=== PATIENT | male | born 1945 | race Caucasian/White ===

== ENCOUNTER 2016-12-30 09:52 | Outpatient (RCR) | payer MEDICARE, OTHER ==
--- OUTSIDE RECORDS SUMMARY | 2016-12-28 12:54 | XMS REPORT | Continuity of Care Document ---
Author Author [facility] Organization [facility] Address Unknown Phone Unavailable Care Team Providers Care Knot Tier Name Role Phone PCP Unavailable Source Comments Some departments are not documenting in the electronic medical record. If you do not see the information that you expected, contact Release of Information in the Health Information Management department at [phone] for further assistance in locating additional records.[facility] Active Allergies and Adverse Reactions Allergen Noted Date Severity Reactions Comments Niacin 12/17/2012 FLUSHING (SKIN) Percodan 10/31/2012 UNKNOWN Hit self and took skin off knees and elbows. Current Medications Prescription Sig. Disp. Refills Start End Date Status Date FENOFIBRATE PO Take 134 mg by mouth Active daily. ERGOCALCIFEROL (VITAMIN Take 50,000 Units by Active D2) (VITAMIN D PO) mouth four times weekly. allopurinol (ZYLOPRIM) Take 300 mg by mouth Active 300 mg tablet daily. carvedilol (COREG) 25 mg Take 25 mg by mouth twice Active tablet daily with meals. clopiDOGrel (PLAVIX) 75 Take 75 mg by mouth Active mg tablet daily. furosemide (LASIX) 40 mg Take 40 mg by mouth Active tablet daily. 3x a week glimepiride (AMARYL) 4 mg Take 4 mg by mouth daily Active tablet with breakfast. magnesium oxide (MAG-OX) Take 400 mg by mouth Active 400 mg tablet daily. metFORMIN (GLUCOPHAGE) Take 500 mg by mouth Active 500 mg tablet daily. 3x a week DOCOSAHEXANOIC ACID/EPA Take 1,800 mg by mouth Active (FISH OIL PO) twice daily. Total daily EPA/EZK=[id number] potassium chloride SR Take 10 mEq by mouth Active (K-DUR) 10 mEq tablet daily. testosterone cypionate(+) Inject 100 mg to area(s) Active (DEPO-TESTOSTERONE) 100 as directed every 14 mg/mL injection days. linagliptin (TRADJENTA) 5 Take 5 mg by mouth daily. Active mg Tab aspirin EC 81 mg tablet Take 81 mg by mouth Active daily. Bee Pollen 500 mg Tab Take 550 mg by mouth Active daily. cyanocobalamin(+) Take 1,000 mcg by mouth Active (VITAMIN B-12) 500 mcg daily. tablet [place] Extr Use 250 mg as directed Active daily. Cinnamon Bark (CINNAMON) Take 500 mg by mouth Active 500 mg cap daily. ASCORBATE CALCIUM Take 500 mg by mouth Active (VITAMIN C PO) daily. rosuvastatin (CRESTOR) 20 Take 1 Tab by mouth three 90 Tab 3 12/17/19 Active mg tablet times weekly. 13 lisinopril (PRINIVIL; Take 10 mg by mouth twice Active ZESTRIL) 10 mg tablet daily. Active Problems Problem Noted Date Mixed dyslipidemia 06/17/2013 Diabetes mellitus (HCC) 06/17/2013 Dyslipidemia 12/17/2012 Social History Tobacco Use Types Packs/Day Years Used Date Never Smoker Smokeless Tobacco: Never Used Tobacco Cessation: Counseling Given: No Comments: Alcohol Use Drinks/Week oz/Week Comments No Last Filed Vital Signs Vital Sign Reading Time Taken Blood Pressure 162/72 06/17/2013 8:35 AM CDT Pulse 73 06/17/2013 8:35 AM CDT Temperature - - Respiratory Rate - - Height 1.854 m (6' 1") 06/17/2013 8:35 AM CDT Weight 127.279 kg (280 lb 9.6 06/17/2013 8:35 AM CDT oz) Body Mass Index 37.03 06/17/2013 8:35 AM CDT Oxygen Saturation - - Plan of Care Health Maintenance Due Date Last Done Comments Physical (Comprehensive) 1952 Exam Pertussis Vaccine 1957 Tetanus Vaccine 1963 Colorectal Cancer 1996 Screening Shingles Vaccine 2006 Prevnar/Pneumovax (#1) 2011 Influenza Vaccine 06/23/2016 Results from Last 3 Months Not on file
--- OUTSIDE RECORDS SUMMARY | 2016-12-28 13:28 | XMS REPORT | Continuity of Care Document ---
Author Author [facility] Organization [facility] Address Unknown Phone Unavailable Care Team Providers Care Arboriculture Teacher Name Role Phone PCP Unavailable Source Comments Some departments are not documenting in the electronic medical record. If you do not see the information that you expected, contact Release of Information in the Health Information Management department at [phone] for further assistance in locating additional records.[facility] Active Allergies and Adverse Reactions Allergen Noted [...] (FISH OIL PO) twice daily. Total daily EPA/VNI=[id number] potassium chloride SR Take 10 mEq by [...]
--- NOTE | 2016-12-28 14:01 | Diagnostic Imaging Report ---
CLINICAL INDICATION: Patient with chronic kidney disease stage 3. EXAM: Ultrasound of both kidneys. COMPARISON: Ultrasound of both kidneys dated 11/05/2012. FINDINGS: Both kidneys are normal in size, shape, echogenicity and cortical thickness without hydronephrosis, stones, or focal lesions with the right and left kidneys measuring 14.2 cm and 12.2 cm in their craniocaudal dimensions, respectively. The bladder is incompletely distended and not well visualized for evaluation on this exam. IMPRESSION: Unremarkable bilateral renal ultrasound. Dictated by: Dictated on workstation # [id number]
[~2016-12-30 09:52] MED LIST: ALBU8.5H2 IH; ALLO100T PO; ALLO300T2 PO; AMLO5TAB2 PO; ASCO-262 PO; ASPI-875 PO; BEE550CA PO; BENZ100C18 PO; CARV25TA PO; CHERRY EXTRACT PO; CHOL5000 PO; CINN500C7 PO; CLOP75TA PO; CYAN10007 PO; ELDERBERRY PO; FENO134C PO; FURO40TA4 PO; GLIM4TAB PO; LEVO500T69 PO; LINA5TAB PO; LISI20TA PO; MAGN400T6 PO; MTF500T PO; MV,C1TAB21 PO; POTA10TA36 PO; ROSU20TA14 PO
== END 2017-03-28 | disposition home or self-care (01) ==
LOC: RAD 09:52
PROVIDERS: ATTEND Internal Medicine
DX: N18.3 Chronic kidney disease, stage 3 (moderate) (principal)
CPT/HCPCS: 76770; 82570; 84156

== ENCOUNTER → 2017-03-28 | Outpatient (CLI) | payer MEDICARE, OTHER | LOC: RAD 14:23 | PROVIDERS: ATTEND Nurse Practitioner Family | DX: I70.213 Atherosclerosis of native arteries of extremities with intermittent claudication, bilateral legs (principal); E11.9 Type 2 diabetes mellitus without complications | CPT/HCPCS: 93923 ==

== ENCOUNTER 2017-05-15 09:24 | Outpatient (RCR) | payer MEDICARE, OTHER ==
[2017-03-13 14:46] LABS: BASOPHILS % (AUTO) 0 % (0-10); EOSINOPHILS # (AUTO) 0.4 10^3/uL (0.0-0.3); EOSINOPHILS % (AUTO) 4 % (0-10); LYMPHOCYTES # (AUTO) 1.8 X 10^3 (1.0-4.0); LYMPHOCYTES % (AUTO) 19 % (12-44); MEAN CORPUSCULAR HEMOGLOBIN 29 PG (25-34); MEAN CORPUSCULAR HGB CONC 33 G/DL (32-36); MEAN CORPUSCULAR VOLUME 89 FL (80-99); MEAN PLATELET VOLUME 10.5 FL (7.4-10.4); MONOCYTES # (AUTO) 0.7 X 10^3 (0.0-1.0); MONOCYTES % (AUTO) 8 % (0-12); NEUTROPHILS # (AUTO) 6.6 X 10^3 (1.8-7.8); NEUTROPHILS % (AUTO) 69 % (42-75); PLATELET COUNT 203 10^3/uL (130-400); RED BLOOD COUNT 4.47 10^6/uL (4.35-5.85); RED CELL DISTRIBUTION WIDTH 14.9 % (10.0-14.5); WHITE BLOOD COUNT 9.5 10^3/uL (4.3-11.0)
[2017-03-13 15:04] LABS: ALBUMIN 4.4 G/DL (3.2-4.5); BILIRUBIN,TOTAL 0.4 MG/DL (0.1-1.0); CALCIUM 10.1 MG/DL (8.5-10.1); CREATININE SERUM 1.44 MG/DL (0.60-1.30); POTASSIUM 4.3 MMOL/L (3.6-5.0); TOTAL PROTEIN 7.3 G/DL (6.4-8.2)
[2017-03-14 05:22] LABS: IMMUNOGLOBULIN IGA 92 mg/dL (71-263); IMMUNOGLOBULIN IGG 781 mg/dL (672-1680)
[2017-03-14 08:09] LABS: IMMUNOGLOBULIN IGM 30 mg/dL (47-209)
[2017-05-15 09:50] LABS: BASOPHILS % (AUTO) 0 % (0-10); EOSINOPHILS # (AUTO) 0.6 10^3/uL (0.0-0.3); EOSINOPHILS % (AUTO) 6 % (0-10); LYMPHOCYTES # (AUTO) 1.8 X 10^3 (1.0-4.0); LYMPHOCYTES % (AUTO) 20 % (12-44); MEAN CORPUSCULAR HEMOGLOBIN 29 PG (25-34); MEAN CORPUSCULAR HGB CONC 33 G/DL (32-36); MEAN CORPUSCULAR VOLUME 89 FL (80-99); MEAN PLATELET VOLUME 9.7 FL (7.4-10.4); MONOCYTES # (AUTO) 0.7 X 10^3 (0.0-1.0); MONOCYTES % (AUTO) 8 % (0-12); NEUTROPHILS # (AUTO) 6.1 X 10^3 (1.8-7.8); NEUTROPHILS % (AUTO) 66 % (42-75); PLATELET COUNT 188 10^3/uL (130-400); RED BLOOD COUNT 4.29 10^6/uL (4.35-5.85); WHITE BLOOD COUNT 9.2 10^3/uL (4.3-11.0)
[2017-05-15 10:10] LABS: BILIRUBIN,TOTAL 0.3 MG/DL (0.1-1.0); CALCIUM 9.5 MG/DL (8.5-10.1); CREATININE SERUM 1.79 MG/DL (0.60-1.30); POTASSIUM 4.6 MMOL/L (3.6-5.0)
== END 2017-06-11 | disposition home or self-care (01) ==
LOC: ONC 09:24
PROVIDERS: ATTEND Internal Medicine Hematology & Oncology
DX: R21 Rash and other nonspecific skin eruption (principal); R79.9 Abnormal finding of blood chemistry, unspecified; Z95.1 Presence of aortocoronary bypass graft; E11.9 Type 2 diabetes mellitus without complications; E66.01 Morbid (severe) obesity due to excess calories; E78.5 Hyperlipidemia, unspecified
CPT/HCPCS: 36415; 80053; 82784; 85025; 99213; 99214

== ENCOUNTER 2017-05-16 08:13 | Outpatient (RCR) | payer MEDICARE, OTHER | END 2017-05-22 16:00 | disposition home or self-care (01) | LOC: WOUNDCARE 08:13 | PROVIDERS: ATTEND Nurse Practitioner | DX: E11.628 Type 2 diabetes mellitus with other skin complications (principal); L97.212 Non-pressure chronic ulcer of right calf with fat layer exposed; L97.222 Non-pressure chronic ulcer of left calf with fat layer exposed; L30.9 Dermatitis, unspecified; N18.3 Chronic kidney disease, stage 3 (moderate); I87.2 Venous insufficiency (chronic) (peripheral) | CPT/HCPCS: 11042; 11100; 87070; 87075; 87186; 87205; 88305; 88313; 97597; 99213 ==

== ENCOUNTER → 2017-05-23 | Outpatient (CLI) | payer MEDICARE, OTHER | LOC: WOUNDCARE 08:12 | PROVIDERS: ATTEND Nurse Practitioner | DX: L97.221 Non-pressure chronic ulcer of left calf limited to breakdown of skin (principal) | CPT/HCPCS: 11042 ==

== ENCOUNTER → 2017-06-06 | Outpatient (CLI) | payer MEDICARE, OTHER | LOC: WOUNDCARE 08:14 | PROVIDERS: ATTEND Nurse Practitioner | DX: E11.628 Type 2 diabetes mellitus with other skin complications (principal); L95.8 Other vasculitis limited to the skin; L97.222 Non-pressure chronic ulcer of left calf with fat layer exposed; L97.211 Non-pressure chronic ulcer of right calf limited to breakdown of skin; L97.221 Non-pressure chronic ulcer of left calf limited to breakdown of skin; I87.2 Venous insufficiency (chronic) (peripheral); N18.3 Chronic kidney disease, stage 3 (moderate) | CPT/HCPCS: 99213 ==

== ENCOUNTER → 2017-06-13 | Outpatient (CLI) | payer MEDICARE, OTHER | LOC: WOUNDCARE 08:26 | PROVIDERS: ATTEND Nurse Practitioner | DX: E11.628 Type 2 diabetes mellitus with other skin complications (principal); L97.222 Non-pressure chronic ulcer of left calf with fat layer exposed; L97.211 Non-pressure chronic ulcer of right calf limited to breakdown of skin; L97.221 Non-pressure chronic ulcer of left calf limited to breakdown of skin; I87.2 Venous insufficiency (chronic) (peripheral); N18.3 Chronic kidney disease, stage 3 (moderate); L95.8 Other vasculitis limited to the skin | CPT/HCPCS: 99213 ==

== ENCOUNTER → 2017-06-20 | Outpatient (CLI) | payer MEDICARE, OTHER | LOC: WOUNDCARE 08:37 | PROVIDERS: ATTEND Nurse Practitioner | DX: E11.628 Type 2 diabetes mellitus with other skin complications (principal); L95.8 Other vasculitis limited to the skin; L97.211 Non-pressure chronic ulcer of right calf limited to breakdown of skin; L97.221 Non-pressure chronic ulcer of left calf limited to breakdown of skin; I87.2 Venous insufficiency (chronic) (peripheral); N18.3 Chronic kidney disease, stage 3 (moderate) | CPT/HCPCS: 99213 ==

== ENCOUNTER → 2017-06-27 | Outpatient (CLI) | payer MEDICARE, OTHER | LOC: WOUNDCARE 08:15 | PROVIDERS: ATTEND Nurse Practitioner | DX: E11.628 Type 2 diabetes mellitus with other skin complications (principal); L97.211 Non-pressure chronic ulcer of right calf limited to breakdown of skin; L97.221 Non-pressure chronic ulcer of left calf limited to breakdown of skin; I87.2 Venous insufficiency (chronic) (peripheral); L98.5 Mucinosis of the skin; N18.3 Chronic kidney disease, stage 3 (moderate) | CPT/HCPCS: 99212 ==

== ENCOUNTER → 2017-07-11 | Outpatient (CLI) | payer MEDICARE, OTHER | LOC: WOUNDCARE 08:04 | PROVIDERS: ATTEND Nurse Practitioner | DX: E11.628 Type 2 diabetes mellitus with other skin complications (principal); L95.8 Other vasculitis limited to the skin; L97.211 Non-pressure chronic ulcer of right calf limited to breakdown of skin; L97.221 Non-pressure chronic ulcer of left calf limited to breakdown of skin; I87.2 Venous insufficiency (chronic) (peripheral); N18.3 Chronic kidney disease, stage 3 (moderate) | CPT/HCPCS: 99212 ==

== ENCOUNTER → 2017-07-25 | Outpatient (CLI) | payer MEDICARE, OTHER | LOC: WOUNDCARE 08:13 | PROVIDERS: ATTEND Nurse Practitioner | DX: L95.8 Other vasculitis limited to the skin (principal); E11.628 Type 2 diabetes mellitus with other skin complications; L97.211 Non-pressure chronic ulcer of right calf limited to breakdown of skin; L97.221 Non-pressure chronic ulcer of left calf limited to breakdown of skin; I87.2 Venous insufficiency (chronic) (peripheral); N18.3 Chronic kidney disease, stage 3 (moderate) | CPT/HCPCS: 99212 ==

== ENCOUNTER → 2017-08-08 | Outpatient (CLI) | payer MEDICARE, OTHER | LOC: WOUNDCARE 08:15 | PROVIDERS: ATTEND Nurse Practitioner | DX: L95.8 Other vasculitis limited to the skin (principal); E11.628 Type 2 diabetes mellitus with other skin complications; L97.211 Non-pressure chronic ulcer of right calf limited to breakdown of skin; L97.221 Non-pressure chronic ulcer of left calf limited to breakdown of skin; I87.2 Venous insufficiency (chronic) (peripheral); N18.3 Chronic kidney disease, stage 3 (moderate) | CPT/HCPCS: 99213 ==

== ENCOUNTER → 2017-09-05 | Outpatient (CLI) | payer MEDICARE, OTHER | LOC: WOUNDCARE 08:15 | PROVIDERS: ATTEND Nurse Practitioner | DX: L97.221 Non-pressure chronic ulcer of left calf limited to breakdown of skin (principal); L95.8 Other vasculitis limited to the skin; E11.628 Type 2 diabetes mellitus with other skin complications; I87.2 Venous insufficiency (chronic) (peripheral); N18.3 Chronic kidney disease, stage 3 (moderate); L97.212 Non-pressure chronic ulcer of right calf with fat layer exposed | CPT/HCPCS: 11042; 97597 ==

== ENCOUNTER → 2017-09-07 | Outpatient (CLI) | payer MEDICARE, OTHER ==
[2017-09-07] VITALS (7 sets, daily range): BP systolic 133–161; BP diastolic 57–82
[~2017-09-07] VITALS: Ht 188 cm; Wt 128.0 kg
[~2017-09-07] MED LIST changes: +IVIG 10 GM (PRIVIGEN) 100 ML IV SCH; +IVIG 20 GM IV SCH
== END ==
LOC: SDC 12:24
PROVIDERS: ATTEND Nurse Practitioner Family
DX: D80.4 Selective deficiency of immunoglobulin M [IgM] (principal)

== ENCOUNTER → 2017-09-19 | Outpatient (CLI) | payer MEDICARE, OTHER ==
[~2017-09-19] MED LIST changes: -IVIG 10 GM (PRIVIGEN) 100 ML IV SCH; -IVIG 20 GM IV SCH
== END ==
LOC: WOUNDCARE 08:12
PROVIDERS: ATTEND Nurse Practitioner
DX: E11.628 Type 2 diabetes mellitus with other skin complications (principal); L95.8 Other vasculitis limited to the skin; L97.221 Non-pressure chronic ulcer of left calf limited to breakdown of skin; I87.2 Venous insufficiency (chronic) (peripheral); N18.3 Chronic kidney disease, stage 3 (moderate); L97.212 Non-pressure chronic ulcer of right calf with fat layer exposed
CPT/HCPCS: 99213

== ENCOUNTER → 2017-10-03 | Outpatient (CLI) | payer MEDICARE, OTHER | LOC: WOUNDCARE 08:06 | PROVIDERS: ATTEND Nurse Practitioner | DX: E11.628 Type 2 diabetes mellitus with other skin complications (principal); L97.221 Non-pressure chronic ulcer of left calf limited to breakdown of skin; L97.212 Non-pressure chronic ulcer of right calf with fat layer exposed; L95.8 Other vasculitis limited to the skin; I87.2 Venous insufficiency (chronic) (peripheral); N18.3 Chronic kidney disease, stage 3 (moderate) | CPT/HCPCS: 99212 ==

== ENCOUNTER → 2017-12-04 | Outpatient (CLI) | payer MEDICARE, OTHER | LOC: CARD 08:47 | PROVIDERS: ATTEND Internal Medicine Cardiovascular Disease | DX: I25.10 Atherosclerotic heart disease of native coronary artery without angina pectoris (principal); I65.23 Occlusion and stenosis of bilateral carotid arteries; I12.9 Hypertensive chronic kidney disease with stage 1 through stage 4 chronic kidney disease, or unspecified chronic kidney disease; E11.22 Type 2 diabetes mellitus with diabetic chronic kidney disease; N18.9 Chronic kidney disease, unspecified; E78.4 Other hyperlipidemia | CPT/HCPCS: 93306 ==

== ENCOUNTER 2017-12-11 11:52 | Outpatient (RCR) | payer MEDICARE, OTHER ==
[2017-10-09 12:00] VITALS: BP 152/75
[2017-10-09 12:05] VITALS: BP 149/61
[2017-10-09] MEDS: IVIG 20 GM (PRIVIGEN) 200 ML IV SCH ×2 (13:02→15:00)
[2017-10-09] MEDS: IVIG 10 GM (PRIVIGEN) 100 ML IV SCH (15:45)
[2017-11-09] VITALS (11 sets, daily range): BP systolic 152–173; BP diastolic 58–85
[2017-11-09] MEDS: IVIG 20 GM (PRIVIGEN) 200 ML IV SCH ×2 (12:45→13:45)
[2017-11-09] MEDS: IVIG 10 GM (PRIVIGEN) 100 ML IV SCH (14:30)
[~2017-12-11] VITALS: Ht 185.4 cm; Wt 130.2 kg
[2017-12-11] VITALS (7 sets, daily range): BP systolic 140–172; BP diastolic 61–166
[2017-12-11] MEDS: IVIG 10 GM (PRIVIGEN) 100 ML IV SCH (12:25)
[2017-12-11] MEDS: IVIG 20 GM (PRIVIGEN) 200 ML IV SCH ×2 (13:15→13:50)
== END 2018-01-07 | disposition home or self-care (01) ==
LOC: SDC 11:52
PROVIDERS: ATTEND Nurse Practitioner Family
DX: D80.3 Selective deficiency of immunoglobulin G [IgG] subclasses (principal)
CPT/HCPCS: 96365; 96366

== ENCOUNTER 2018-03-12 11:51 | Outpatient (RCR) | payer MEDICARE, OTHER ==
[2018-01-08 12:00] VITALS: BP 145/65
[2018-01-08 13:10] VITALS: BP 150/61
[2018-01-08] MEDS: IVIG 20 GM IV SCH ×2 (13:10→14:25)
[2018-01-08 13:25] VITALS: BP 145/61
[2018-01-08 13:40] VITALS: BP 171/65
[2018-01-08 13:55] VITALS: BP 172/71
[2018-01-08 14:10] VITALS: BP 176/73
[2018-01-08] MEDS: IVIG 10 GM (PRIVIGEN) 100 ML IV SCH (15:15)
[2018-02-05] VITALS (8 sets, daily range): BP systolic 135–174; BP diastolic 57–76
[2018-02-05] MEDS: IVIG 20 GM IV SCH (12:04)
[2018-02-05] MEDS: IVIG 10 GM (PRIVIGEN) 100 ML IV SCH (14:15)
[~2018-03-12] VITALS: Ht 185.4 cm; Wt 132.5 kg
[2018-03-12] VITALS (16 sets, daily range): BP systolic 154–180; BP diastolic 57–79
[2018-03-12] MEDS: IVIG 10 GM (PRIVIGEN) 100 ML IV SCH (12:45)
[2018-03-12] MEDS: IVIG 20 GM IV SCH (14:15)
== END 2018-04-08 | disposition home or self-care (01) ==
LOC: SDC 11:51
PROVIDERS: ATTEND Nurse Practitioner Family
DX: D80.3 Selective deficiency of immunoglobulin G [IgG] subclasses (principal)
CPT/HCPCS: 96365; 96366

== ENCOUNTER 2018-05-07 12:00 | Outpatient (RCR) | payer MEDICARE, OTHER ==
[2018-04-09 16:15] VITALS: BP 159/54
[~2018-05-07] VITALS: Ht 185.4 cm; Wt 131.6 kg
[2018-05-07 12:00] VITALS: BP_SYST 146; BP_SYST 159; BP_DIAS 54; BP_DIAS 59
[~2018-05-07 12:00] MED LIST changes: +IVIG 10 GM (PRIVIGEN) 100 ML IV NR; +IVIG 20 GM (PRIVIGEN) 200 ML IV NR
[2018-05-07] MEDS ORDERED: IVIG 10 GM (PRIVIGEN) 100 ML IV SCH (12:15)
[2018-05-07] MEDS ORDERED: IVIG 20 GM (PRIVIGEN) 200 ML IV SCH (12:15)
[2018-05-07 15:25] VITALS: BP 146/59
== END 2018-07-08 | disposition home or self-care (01) ==
LOC: SDC 12:00
PROVIDERS: ATTEND Nurse Practitioner Family
DX: D80.3 Selective deficiency of immunoglobulin G [IgG] subclasses (principal); Z79.899 Other long term (current) drug therapy
CPT/HCPCS: 96365; 96366

== ENCOUNTER 2018-08-03 11:51 | Outpatient (CLI) | payer MEDICARE, OTHER ==
[~2018-08-03] VITALS: Ht 185.4 cm; Wt 132.1 kg
[~2018-08-03 11:51] MED LIST changes: -IVIG 10 GM (PRIVIGEN) 100 ML IV NR; -IVIG 20 GM (PRIVIGEN) 200 ML IV NR
[2018-08-03 12:10] VITALS: BP 162/90
[2018-08-03] MEDS ORDERED: IVIG 10 GM (PRIVIGEN) 100 ML IV NR (12:14)
[2018-08-03] MEDS: IVIG 20 GM IV NR ×2 (12:40→13:50)
== END 2018-08-03 14:46 | disposition home or self-care (01) ==
LOC: SDC 11:51
PROVIDERS: ATTEND Nurse Practitioner Family
DX: D80.3 Selective deficiency of immunoglobulin G [IgG] subclasses (principal)
CPT/HCPCS: 96365; 96366; J1459

== ENCOUNTER 2019-02-01 11:28 | Outpatient (RCR) | payer MEDICARE, OTHER ==
[2018-11-30 12:05] VITALS: BP 155/59
[2018-12-28] VITALS (19 sets, daily range): BP systolic 139–208; BP diastolic 59–88
--- NOTE | 2018-12-28 13:00 | NUR ---
IVIG INFUSION INCREASED TO 80 ML/HR.
--- NOTE | 2018-12-28 13:30 | NUR ---
IVIG INCREASED TO 140 ML/HR.
--- NOTE | 2018-12-28 14:00 | NUR ---
1400: PT'S PRIVIGEN INFUSION RUNNING AT 140 ML/HR PER PUMP. BP 190/80 HR 78, PT REPORTS SLIGHT HEADACHE THAT HE STATES OCCURS WHEN HIS INFUSION IS RUNNING TOO FAST. PRIVIGEN INFUSION STOPPED AT THIS TIME. BP RECHECKED AT 1410: BP 170/70, HR-72, PT REPORTS HEADACHE IS GONE AND DENIES ANY FURTHER PAIN OR C/O, NO S/S OF DISTRESS. PRIVIGEN INFUSION RESTARTED AT 100 ML/HR, WILL CONTINUE TO MONITOR.
--- NOTE | 2018-12-28 14:48 | NUR ---
Referral from staff, pt observed as "not himself today," described as usually jocund and happy. Requested pastoral care knowing pt's was recently diagnosed with cancer. 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 Pt expresses deep love for others, love for God, and dedication to knowing Taoist scripture. He has been 52 years and shared love for his and trust in the Lord. We engaged in mutually uplifting fellowship. Pt expressed appreciation for our visit and shook my hand.
--- NOTE | 2018-12-28 16:20 | NUR ---
1620: IVIG INFUSION SHUT OFF R/T TO BP SEE ADULT VS INTERVENTION FOR DETAILS. PT DENIES PAIN OR C/O. LUNGS CTA, HR REGULAR. DR. TOLBERT CALLED AND NOTIFIED OF PT'S BLOOD PRESSURES DURING PRIVIGEN INFUSION TITRATION, AND NEW ORDER RECEIVED FOR CLONIDINE 0.1 MG PO NOW, MAY REPEAT IN 1 HOURS IF SYSTOLIC BP REMAINS ABOVE 170. OK TO RESUME PRIVIGEN INFUSION ONCE SYSTOLIC BP IS BELOW 170.
--- NOTE | 2018-12-28 17:45 | NUR ---
IVIG INFUSION RESTARTED AT 40 ML/HR.
--- NOTE | 2018-12-28 18:00 | NUR ---
IVIG INFUSION INCREASED TO 80 ML/HR.
--- NOTE | 2018-12-28 18:30 | NUR ---
INFUSION INCREASED TO 140 ML/HR.
--- NOTE | 2018-12-28 19:00 | NUR ---
IVIG INFUSION INCREASED TO 160 ML/HR.
--- NOTE | 2018-12-28 19:20 | NUR ---
IVIG INFUSION COMPLETE
[~2019-02-01] VITALS: Ht 185.4 cm; Wt 129.3 kg
[~2019-02-01 11:28] MED LIST changes: +IVIG 10 GM (PRIVIGEN) 100 ML IV NR; +IVIG 20 GM IV NR; +IVIG IV NR; +cloNIDine 0.1 MG (CATAPRES) TAB PO ONE
== END 2019-02-28 | disposition home or self-care (01) ==
LOC: SDC 11:28
PROVIDERS: ATTEND Nurse Practitioner Family
DX: D80.3 Selective deficiency of immunoglobulin G [IgG] subclasses (principal); L10.9 Pemphigus, unspecified
CPT/HCPCS: 82962; 96365; 96366; J1459

== ENCOUNTER 2019-05-03 11:42 | Outpatient (RCR) | payer MEDICARE, OTHER ==
[2019-03-01 12:15] VITALS: BP 167/63
[2019-03-29] VITALS (7 sets, daily range): BP systolic 144–166; BP diastolic 57–66
[2019-05-03] VITALS (9 sets, daily range): BP systolic 156–180; BP diastolic 57–72
[~2019-05-03] VITALS: Ht 185.4 cm; Wt 131.5 kg
[~2019-05-03 11:42] MED LIST changes: -IVIG 10 GM (PRIVIGEN) 100 ML IV NR; -IVIG 20 GM IV NR; -cloNIDine 0.1 MG (CATAPRES) TAB PO ONE
[2019-05-03] MEDS ORDERED: IVIG 40 GM (PRIVIGEN) 400 ML IV NR (11:59)
[2019-05-03] MEDS ORDERED: IVIG 10 GM (PRIVIGEN) 100 ML IV NR (12:04)
--- NOTE | 2019-05-03 16:02 | NUR ---
RECEIVED REPORT FROM SANDEEP CUELLO AT 1500. PT FINISHED INFUSION AT 1530. VSS, IV D/C'd, DRESSING CLEAN AND DRY, CATHETER TIP INTACT. PT DISCHARGED AND LEFT BUILDING AT 1545. AMBULATED WITH STEADY GAIT, UNACCOMPANIED.
== END 2019-05-30 | disposition home or self-care (01) ==
LOC: SDC 11:42
PROVIDERS: ATTEND Nurse Practitioner Family
DX: D80.3 Selective deficiency of immunoglobulin G [IgG] subclasses (principal); L10.9 Pemphigus, unspecified
CPT/HCPCS: 96365; 96366; J1459

== ENCOUNTER 2019-08-30 11:58 | Outpatient (RCR) | payer MEDICARE, OTHER ==
[2019-06-07] VITALS (7 sets, daily range): BP systolic 118–156; BP diastolic 47–71
[2019-07-05 13:00] VITALS: BP 159/62
[2019-07-05 13:30] VITALS: BP 168/69
[2019-07-05 14:10] VITALS: BP 175/78
[2019-07-05 14:45] VITALS: BP 172/71
[2019-07-05 15:00] VITALS: BP 176/72
[2019-07-05 18:03] VITALS: BP 159/59
[2019-08-02] VITALS (8 sets, daily range): BP systolic 142–177; BP diastolic 63–82
[~2019-08-30] VITALS: Ht 185.4 cm; Wt 131.5 kg
[2019-08-30] VITALS (19 sets, daily range): BP systolic 150–201; BP diastolic 60–83
[~2019-08-30 11:58] MED LIST changes: +IMMUNE GLOBULIN IV SCH; +IVIG 10 GM (PRIVIGEN) 100 ML IV NR; +IVIG 40 GM (PRIVIGEN) 400 ML IV NR; -IVIG IV NR; +IVIG IV SCH
[2019-08-30] MEDS ORDERED: IVIG 10 GM (PRIVIGEN) 100 ML IV NR (12:10)
[2019-08-30] MEDS ORDERED: IVIG 40 GM (PRIVIGEN) 400 ML IV NR (12:11)
--- NOTE | 2019-08-30 14:30 | NUR ---
IVIG INFUSION SHUT OFF AT THIS TIME DUE TO PT'S INCREASE IN BP. PT DENIES ANY CHEST PAIN, SOB, OR FURTHER C/O, LUNGS CTA. Jonas TOLBERT APRN CALLED AND NOTIFIED OF PT'S STATUS, AND NEW ORDERS RECEIVED FOR CLONIDINE, SEE EMAR FOR DETAILS.
[2019-08-30] MEDS ORDERED: cloNIDine 0.1 MG (CATAPRES) TAB PO ONE (15:00)
--- NOTE | 2019-08-30 15:20 | NUR ---
PT'S BP CURRENTLY 169/68, HR 63, 02 SAT 96% RA. IVIG INFUSION RESTARTED AT 40 ML/HR. WILL CONTINUE TO MONITOR.
--- NOTE | 2019-08-30 16:20 | NUR ---
IV RATE INCREASED TO 80 ML/HR. SEE VITALS FLOW SHEET.
--- NOTE | 2019-08-30 16:40 | NUR ---
IVIG INFUSION INCREASED TO 140 ML/HR. SEE VITALS FLOW SHEET.
== END 2019-09-05 | disposition home or self-care (01) ==
LOC: SDC 11:58
PROVIDERS: ATTEND Nurse Practitioner Family
DX: D80.3 Selective deficiency of immunoglobulin G [IgG] subclasses (principal); L10.9 Pemphigus, unspecified
CPT/HCPCS: 96365; 96366; J1459

== ENCOUNTER 2019-11-18 12:29 | Outpatient (RCR) | payer MEDICARE, OTHER ==
[~2019-11-18 12:29] MED LIST changes: -IMMUNE GLOBULIN IV SCH; -IVIG 10 GM (PRIVIGEN) 100 ML IV NR; -IVIG 40 GM (PRIVIGEN) 400 ML IV NR; -IVIG IV SCH
== END 2020-02-16 | disposition home or self-care (01) ==
LOC: EDSTATUS 12:29 → LAB 12:29
PROVIDERS: ATTEND Internal Medicine
DX: R19.7 Diarrhea, unspecified (principal)
CPT/HCPCS: 87015; 87045; 87046; 87324; 87328; 87329; 87449; 87899

== ENCOUNTER 2019-12-06 12:00 | Outpatient (RCR) | payer MEDICARE, OTHER ==
[2019-10-04] VITALS (9 sets, daily range): BP systolic 130–191; BP diastolic 56–81
[2019-10-04] MEDS: IVIG IV SCH ×2 (12:48)
--- NOTE | 2019-10-04 16:30 | NUR ---
IIVIG COMPLETE, IV FLUSHED AND REMOVED WITH TIP INTACT. PT HAS RETURN APPOINTMENT 11/01/2019 .
[2019-11-01] VITALS (7 sets, daily range): BP systolic 135–159; BP diastolic 58–70
[2019-11-01] MEDS: IVIG IV SCH ×2 (12:48)
[2019-12-06] VITALS (8 sets, daily range): BP systolic 139–170; BP diastolic 59–71
[~2019-12-06] VITALS: Ht 185.4 cm; Wt 129.1 kg
[2019-12-06] MEDS: IVIG IV SCH ×2 (12:34)
== END 2020-01-02 | disposition home or self-care (01) ==
LOC: SDC 12:00
PROVIDERS: ATTEND Nurse Practitioner Family
DX: D80.4 Selective deficiency of immunoglobulin M [IgM] (principal)
CPT/HCPCS: 96365; 96366; J1459

== ENCOUNTER → 2020-01-03 | Outpatient (CLI) | payer MEDICARE, OTHER ==
[2020-01-03] VITALS (8 sets, daily range): BP systolic 147–170; BP diastolic 60–72
[~2020-01-03] VITALS: Ht 185.4 cm; Wt 128.6 kg
[~2020-01-03] MED LIST changes: +IMMUNE GLOBULIN IV SCH
== END ==
LOC: SDC 11:54
PROVIDERS: ATTEND Nurse Practitioner Family
DX: D80.4 Selective deficiency of immunoglobulin M [IgM] (principal)
CPT/HCPCS: J1459

== ENCOUNTER → 2020-02-28 | Outpatient (CLI) | payer MEDICARE, OTHER ==
[~2020-02-28] VITALS: Ht 185.4 cm; Wt 128.6 kg
[2020-02-28 11:44] VITALS: BP 154/63
[2020-02-28 12:55] VITALS: BP 140/58
[2020-02-28 13:25] VITALS: BP 140/61
[2020-02-28 14:00] VITALS: BP 155/61
[2020-02-28 14:30] VITALS: BP 167/70
[2020-02-28 14:55] VITALS: BP 167/75
== END ==
LOC: SDC 11:44
PROVIDERS: ATTEND Nurse Practitioner Family
DX: E61.1 Iron deficiency (principal)
CPT/HCPCS: 96365; 96366; J1459

== ENCOUNTER 2020-06-05 11:53 | Outpatient (RCR) | payer MEDICARE, OTHER ==
[2020-04-03] VITALS (8 sets, daily range): BP systolic 149–191; BP diastolic 60–83
[2020-04-03] MEDS: IMMUNE GLOBULIN IV SCH ×2 (12:20)
[2020-05-01 11:40] VITALS: BP 149/58
[2020-05-01] MEDS: IMMUNE GLOBULIN IV SCH ×2 (11:55)
[2020-05-01 12:15] VITALS: BP 142/55
[2020-05-01 12:55] VITALS: BP 150/69
[2020-05-01 13:15] VITALS: BP 149/65
[2020-05-01 13:40] VITALS: BP 150/65
[2020-05-01 13:55] VITALS: BP 154/67
[~2020-06-05] VITALS: Ht 185.5 cm; Wt 130.2 kg
[~2020-06-05 11:53] MED LIST changes: -IMMUNE GLOBULIN IV SCH
[2020-06-05 11:55] VITALS: BP 167/68
[2020-06-05] MEDS: IMMUNE GLOBULIN IV SCH ×2 (12:15)
[2020-06-05 12:50] VITALS: BP 151/63
[2020-06-05 13:10] VITALS: BP 139/57
[2020-06-05 13:30] VITALS: BP 152/64
[2020-06-05 13:55] VITALS: BP 161/62
== END 2020-07-02 | disposition home or self-care (01) ==
LOC: SDC 11:53
PROVIDERS: ATTEND Nurse Practitioner Family
DX: D80.4 Selective deficiency of immunoglobulin M [IgM] (principal); L12.0 Bullous pemphigoid
CPT/HCPCS: 96365; 96366; J1459

== ENCOUNTER → 2020-07-17 | Outpatient (CLI) | payer MEDICARE, OTHER | LOC: CARD 11:00 | PROVIDERS: ATTEND Internal Medicine Cardiovascular Disease | DX: I13.0 Hypertensive heart and chronic kidney disease with heart failure and stage 1 through stage 4 chronic kidney disease, or unspecified chronic kidney disease (principal); I25.10 Atherosclerotic heart disease of native coronary artery without angina pectoris; I34.0 Nonrheumatic mitral (valve) insufficiency; I65.23 Occlusion and stenosis of bilateral carotid arteries; N18.3 Chronic kidney disease, stage 3 (moderate); I50.23 Acute on chronic systolic (congestive) heart failure | CPT/HCPCS: 93225; 93226; 93306 ==

== ENCOUNTER → 2020-07-31 | Outpatient (CLI) | payer MEDICARE, OTHER | LOC: LABNPT 05:22 | PROVIDERS: ATTEND Nurse Practitioner Family | DX: Z01.812 Encounter for preprocedural laboratory examination (principal); Z20.828 Contact with and (suspected) exposure to other viral communicable diseases | CPT/HCPCS: 87635 ==

== ENCOUNTER → 2020-08-25 | Day surgery (SDC) | payer MEDICARE, OTHER ==
[2020-08-25] VITALS (8 sets, daily range): BP systolic 120–154; BP diastolic 55–70
[~2020-08-25] VITALS: Ht 185.5 cm; Wt 122.7 kg
[~2020-08-25] MED LIST changes: +APIX5TAB PO; +BLACK CHERRY PO; +CARV12.53 PO; +ESCI10TA55 PO; +FURO-125 PO; +GEMF600T8 PO; +HEParin (CATH LAB) 1,000 ML IV ONE; +HYDRO EYE PO; +INSU100V16 SQ; +INSU100V37 SQ; +ISM60TCR PO; +LIDOCAINE 1% INJ 20 ML 20 ML VIAL ONE; +MIDAZOLAM 5 MG/5 ML (VERSED) VIAL ONE; +MULT-1008 PO; +NS IV 1000 ML 1,000 ML IV SCH; +NS IV 1000 ML 1,000 ML ONE; +POTA10TA14 PO; +TMSL.4C PO; +UBID200C16 PO; +VITAMIN B12 PO; +fentaNYL INJECTION 100 MCG/2 ML AMP ONE
[2020-08-25 08:06] LABS: HEMOGLOBIN 11.1 g/dL (13.3-17.7); MEAN PLATELET VOLUME 10.4 fL (9.0-12.2); WHITE BLOOD COUNT 9.7 10^3/uL (4.3-11.0)
[2020-08-25 08:24] LABS: INR 1.2 (0.8-1.4); PROTHROMBIN TIME PATIENT 15.3 SEC (12.2-14.7)
[2020-08-25 08:27] LABS: ALBUMIN 3.8 GM/DL (3.2-4.5); BILIRUBIN,TOTAL 0.4 MG/DL (0.1-1.0); CALCIUM 9.8 MG/DL (8.5-10.1); CREATININE SERUM 1.74 MG/DL (0.60-1.30); POTASSIUM 4.6 MMOL/L (3.6-5.0); TOTAL PROTEIN 7.4 GM/DL (6.4-8.2)
--- NOTE | 2020-08-25 09:02 | Cardiac Procedure Note-CS/ASA ---
Pre-Procedure Note Pre-Op Procedure Note H&P Reviewed The H&P was reviewed, patient examined and no changes noted. Date H&P Reviewed: Aug 25, 2020 Time H&P Reviewed: 09:02 Conscious Sedation Pre-Proced Time 09:02 ASA Score 4 For ASA 3 and 4: Consider anesthesia and medical clearance. Also, for patients with a history of failed moderate sedation consider anesthesia. Airway Lungs Heart ASA score ASA 1: a normal healthy patient ASA 2: a patient with a mild systemic disease (mid diabetes, controlled hypertension, obesity ASA 3: a patient with a severe systemic disease that limits activity (angina, COPD, prior Myocardial infarction) ASA 4: a patient with an incapacitating disease that is a constant threat to life (CHF, renal failure) ASA 5: a moribund patient not expected to survive 24 hrs. (ruptured aneurysm) ASA 6: a declared brain- patient whose organs are being harvested. For emergent operations, add the letter E after the classification Mallampati Classification Grade 2 Sedation Plan Analgesia, Amnesia, Plan communicated to team members, Discussed options with patient/fam, Discussed risks with patient/fam The patient is an appropriate candidate to undergo the planned procedure, sedation, and anesthesia. The patient immediately re-assessed prior to indication. CORINA ANGULO MD FACP FAC CCDS Aug 25, 2020 09:02
--- NOTE | 2020-08-25 09:40 | NUR ---
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 but still not able to lay down. wishes to stop, recover and send home with office appt to discuss next steps
--- NOTE | 2020-08-25 11:15 | NUR ---
iv dc'd cath intact on removal, dc'd via w/c with spouse and instructions
== END ==
LOC: CATH 07:06
PROVIDERS: ATTEND Internal Medicine Cardiovascular Disease
DX: Z53.8 Procedure and treatment not carried out for other reasons (principal); I48.91 Unspecified atrial fibrillation; I25.10 Atherosclerotic heart disease of native coronary artery without angina pectoris; E78.00 Pure hypercholesterolemia, unspecified; J18.9 Pneumonia, unspecified organism; K21.9 Gastro-esophageal reflux disease without esophagitis; K44.9 Diaphragmatic hernia without obstruction or gangrene; N18.9 Chronic kidney disease, unspecified; E11.22 Type 2 diabetes mellitus with diabetic chronic kidney disease; Z91.011 Allergy to milk products; Z88.5 Allergy status to narcotic agent; Z88.8 Allergy status to other drugs, medicaments and biological substances; Z91.018 Allergy to other foods; Z88.1 Allergy status to other antibiotic agents
CPT/HCPCS: 36415; 80053; 80061; 85027; 85610; 85730; 87081

== ENCOUNTER → 2021-06-10 | Outpatient (CLI) | payer MEDICARE, OTHER ==
[~2021-06-10] MED LIST changes: +ESCI-2 PO; -ESCI10TA55 PO; -GEMF600T8 PO; +GEMF600T88 PO; -HEParin (CATH LAB) 1,000 ML IV ONE; -ISM60TCR PO; +ISOS60TA63 PO; -LIDOCAINE 1% INJ 20 ML 20 ML VIAL ONE; -MIDAZOLAM 5 MG/5 ML (VERSED) VIAL ONE; -NS IV 1000 ML 1,000 ML IV SCH; -NS IV 1000 ML 1,000 ML ONE; -fentaNYL INJECTION 100 MCG/2 ML AMP ONE
[2021-06-10 15:32] LABS: BASOPHILS # (AUTO) 0.1 10^3/uL (0.0-0.1); BASOPHILS % (AUTO) 1 % (0-10); EOSINOPHILS # (AUTO) 0.3 10^3/uL (0.0-0.3); EOSINOPHILS % (AUTO) 3 % (0-10); HEMATOCRIT 37 % (40-54); HEMOGLOBIN 11.4 g/dL (13.3-17.7); LYMPHOCYTES % (AUTO) 10 % (12-44); MEAN CORPUSCULAR HEMOGLOBIN 28 pg (25-34); MEAN CORPUSCULAR HGB CONC 31 g/dL (32-36); MEAN CORPUSCULAR VOLUME 91 fL (80-99); MONOCYTES # (AUTO) 0.8 X 10^3 (0.0-1.0); MONOCYTES % (AUTO) 8 % (0-12); NEUTROPHILS # (AUTO) 8.4 X 10^3 (1.8-7.8); NEUTROPHILS % (AUTO) 79 % (42-75); PLATELET COUNT 157 10^3/uL (130-400); WHITE BLOOD COUNT 10.6 10^3/uL (4.3-11.0)
[2021-06-10 15:42] LABS: ALBUMIN 3.8 GM/DL (3.2-4.5); BILIRUBIN,TOTAL 0.5 MG/DL (0.1-1.0); CALCIUM 9.9 MG/DL (8.5-10.1); CREATININE SERUM 1.69 MG/DL (0.60-1.30); POTASSIUM 4.6 MMOL/L (3.6-5.0); TOTAL PROTEIN 7.6 GM/DL (6.4-8.2)
--- NOTE | 2021-06-10 15:45 | Diagnostic Imaging Report ---
INDICATION: Dyspnea. TIME OF EXAM: 3:38 p.m. COMPARISON: Correlation is made with prior chest from 03/31/2014. FINDINGS: The heart is enlarged but stable. There are changes of median sternotomy. There appears to be a small pleural effusion on the right side with some associated atelectasis or infiltrate in the right base. Left lung is clear. Pulmonary vascularity is normal. There is no pneumothorax. IMPRESSION: Development of a small right pleural effusion with some minimal right basilar infiltrate or atelectasis. Dictated by: Dictated on workstation # [id number]
--- NOTE | 2021-06-11 09:59 | Diagnostic Imaging Report ---
PROCEDURE: US Venous Lower Ext Alonso. TECHNIQUE: Multiple real-time grayscale images were obtained over the lower extremities in various projections, bilaterally. Additional duplex Doppler and color Doppler images were also obtained. INDICATION: Dyspnea and large joint edema. There is no evidence of right or left lower extremity DVT. Both lower extremity deep venous systems demonstrate normal compressibility with normal response to augmentation and Valsalva. No fluid collection or mass is detected. IMPRESSION: No evidence of right or left lower extremity DVT. Dictated by: Dictated on workstation # [id number]
== END ==
LOC: RAD 15:07
PROVIDERS: ATTEND Nurse Practitioner Family
DX: J90 Pleural effusion, not elsewhere classified (principal); M25.48 Effusion, other site
CPT/HCPCS: 36415; 71046; 80053; 83880; 85025; 85379; 93970

== ENCOUNTER → 2021-08-05 | Outpatient (CLI) | payer MEDICARE, OTHER ==
--- NOTE | 2021-08-05 16:51 | Diagnostic Imaging Report ---
PROCEDURE: US Bilateral lower extremity arterial. TECHNIQUE: Multiple real-time grayscale images are obtained through both lower extremity arterial systems with color Doppler imaging and color Doppler spectral analysis. INDICATION: Chronic stasis dermatitis. Bilateral lower extremity claudication Examination shows diffuse calcified and noncalcified plaque throughout with biphasic and monophasic flow seen but no occlusions or high-grade stenoses are identified. IMPRESSION: There is diffuse atherosclerotic disease but no occlusions or high-grade stenoses are seen. Dictated by: Dictated on workstation # [id number]
== END ==
LOC: RAD 12:00
PROVIDERS: ATTEND Internal Medicine
DX: I70.213 Atherosclerosis of native arteries of extremities with intermittent claudication, bilateral legs (principal); I87.2 Venous insufficiency (chronic) (peripheral)
CPT/HCPCS: 93925

== ENCOUNTER → 2021-10-13 | Outpatient (CLI) | payer MEDICARE, OTHER ==
[~2021-10-13] MED LIST changes: +POTA-164 PO; -POTA10TA14 PO
== END ==
LOC: WOUNDCARE 09:15
PROVIDERS: ATTEND Family Medicine
DX: I87.313 Chronic venous hypertension (idiopathic) with ulcer of bilateral lower extremity (principal); L97.212 Non-pressure chronic ulcer of right calf with fat layer exposed; L97.221 Non-pressure chronic ulcer of left calf limited to breakdown of skin; I70.232 Atherosclerosis of native arteries of right leg with ulceration of calf; I70.242 Atherosclerosis of native arteries of left leg with ulceration of calf; I89.0 Lymphedema, not elsewhere classified; G90.09 Other idiopathic peripheral autonomic neuropathy; E11.622 Type 2 diabetes mellitus with other skin ulcer; L03.115 Cellulitis of right lower limb; L03.116 Cellulitis of left lower limb; N18.30 Chronic kidney disease, stage 3 unspecified
CPT/HCPCS: 99214

== ENCOUNTER → 2021-10-25 | Outpatient (CLI) | payer MEDICARE, OTHER | LOC: WOUNDCARE 10:28 | PROVIDERS: ATTEND Family Medicine | DX: I87.313 Chronic venous hypertension (idiopathic) with ulcer of bilateral lower extremity (principal); L97.212 Non-pressure chronic ulcer of right calf with fat layer exposed; L97.221 Non-pressure chronic ulcer of left calf limited to breakdown of skin; I70.232 Atherosclerosis of native arteries of right leg with ulceration of calf; I70.242 Atherosclerosis of native arteries of left leg with ulceration of calf; I89.0 Lymphedema, not elsewhere classified; G90.09 Other idiopathic peripheral autonomic neuropathy; E11.622 Type 2 diabetes mellitus with other skin ulcer; L03.115 Cellulitis of right lower limb; L03.116 Cellulitis of left lower limb; E11.22 Type 2 diabetes mellitus with diabetic chronic kidney disease; N18.30 Chronic kidney disease, stage 3 unspecified; E11.52 Type 2 diabetes mellitus with diabetic peripheral angiopathy with gangrene | CPT/HCPCS: 87070; 87205; G0463; 99213 ==

== ENCOUNTER 2022-06-02 10:09 | Emergency (ER) | payer MEDICARE, OTHER ==
[~2022-06-02] VITALS: Ht 180 cm; Wt 109.0 kg
--- NOTE | 2022-06-02 10:49 | ED Integumentary General ---
General Chief Complaint: Skin/Wound Problems Stated Complaint: POSSILBE CELLULITIS,SOB Nursing Triage Note: pt. sent from Dr. Schmidt's office for eval and tx and possible admission for poor healing bilat lower ext wounds/cellulitis. Source: patient Exam Limitations: other History of Present Illness Date Seen by Provider: Jun 02, 2022 Time Seen by Provider: 10:30 Initial Comments Patient is a 76-year-old female with a history of diabetes and vascular disease who presents to the emergency department today with a chief complaint of increasing redness swelling, pain in his bilateral lower extremities. Per review of the medical record from this facility the patient has a history of "bullous stasis dermatitis" he has been followed at wound care clinic but it looks like his last visits were in October of this year. He has had multiple visits to [facility] in [place] with multiple admissions. He states that he has no ongoing clinic visits at wound care here. He cannot really provide a detailed history, question some level of dementia. He defers to his who really does not answer questions any better and also to a typed medical history that they have brought with him today. He complains of some low back discomfort due to to the position he is not in the bed. He complains of a little increased redness over the course of the last couple of weeks in his lower legs. But he states the wounds overall look about the same; his pain is about the same as usual.. He was recently admitted on May 14 at [facility] with COVID. He denies shortness of breath or productive cough currently. He is a little nauseous. No urinary complaints or diarrhea. No reported fevers. Patient has not been able to follow up with wound care clinic since Oct due to multiple hospitalizations at [facility] since then. Dr. Schmidt's nurse called me prior to the patient's arrival and was concerned for vascular occlusion. Patient has warm feet bilaterally with palpable pulses over the dorsalis pedis. Intact sensation. All other review of systems reviewed and negative except as stated Timing/Duration: week Severity: moderate Location: extremities (lower) Possible Cause: other (chronic stasis dermatitis; lymphedema) Associated Symptoms: edema, swelling/mass/lumps (redness to legs) Allergies and Home Medications Allergies Coded Allergies: gluten (Verified Allergy, Intermediate, 08/25/20) CELAIC DISEASE lactase (Verified Allergy, Intermediate, 08/25/20) CELIAC DISEASE Sulfa (Sulfonamide Antibiotics) (Verified Allergy, Unknown, 06/02/22) acetaminophen (Verified Allergy, Unknown, 06/02/22) amitriptyline (Verified Allergy, Unknown, 06/02/22) ciprofloxacin (Verified Allergy, Unknown, 06/02/22) doxycycline (Verified Allergy, Unknown, 06/02/22) fluticasone (Verified Allergy, Unknown, 06/02/22) gabapentin (Verified Allergy, Unknown, 06/02/22) levofloxacin (Verified Allergy, Unknown, 08/25/20) HALLICINATIONS niacin (Verified Allergy, Unknown, Nausea, 08/25/20) FLUSHING AND MULTIPLE STOMACH COMPLAINTS oxycodone (Verified Allergy, Unknown, 03/18/14) silver sulfadiazine (Verified Allergy, Unknown, 06/02/22) tramadol (Verified Allergy, Unknown, 06/02/22) Patient Home Medication List Home Medication List Reviewed: Yes Allopurinol (Allopurinol) 100 Mg Tablet, 400 MG PO DAILY, (Reported) Entered as Reported by: LESLI BARR on 08/25/20 08 Apixaban (Eliquis) 5 Mg Tablet, 5 MG PO BID, (Reported) Entered as Reported by: LESLI BARR on 08/25/20 08 Ascorbate Calcium (Vitamin C) 500 Mg Tablet, 500 MG PO DAILY, (Reported) Entered as Reported by: RAFFY LEMOS on 03/18/14 1420 Aspirin (Cotton Aspirin) 81 Mg Tablet.dr, 81 MG PO EVERY OTHER DAY, (Reported) Entered as Reported by: RAFFY LEMOS on 03/18/14 1420 Bee Pollen (Bee Pollen) 550 Mg Capsule, 550 MG PO DAILY, (Reported) Entered as Reported by: RAFFY LEMOS on 03/18/14 1420 Carvedilol (Carvedilol) 12.5 Mg Tablet, 12.5 MG PO BID, (Reported) Entered as Reported by: LESLI BARR on 08/25/20 0838 Cholecalciferol (Vitamin D3) 5,000 Unit Capsule, 5,000 UNIT PO BID, (Reported) Entered as Reported by: RAFFY LEMOS on 03/18/14 1420 Clindamycin HCl (Clindamycin HCl) 150 Mg Capsule, 150 MG PO TID Prescribed by: YEN COTTON on 06/02/22 1336 Clindamycin HCl (Clindamycin HCl) 300 Mg Capsule, 300 MG PO TID Prescribed by: YEN COTTON on 06/02/221335 Escitalopram Oxalate (Escitalopram Oxalate) 10 Mg Tablet, 10 MG PO DAILY, (Reported) Entered as Reported by: LESLI BARR on 08/25/20837 Furosemide (Lasix) 20 Mg Tablet, 40 MG PO DAILY, (Reported) Entered as Reported by: LESLI BARR on 08/25/20837 Gemfibrozil (Gemfibrozil) 600 Mg Tablet, 600 MG PO BID, (Reported) Entered as Reported by: LESLI BARR on 08/25/20837 Insulin Aspart (Novolog) 100 Unit/1 Ml Susp, 12 UNIT SQ AC, (Reported) Entered as Reported by: LESLI BARR on 08/25/20837 Insulin Degludec (Tresiba) 100 Unit/1 Ml Vial, 40 UNIT SQ DAILY, (Reported) Entered as Reported by: LESLI BARR on 08/25/20837 Isosorbide Mononitrate (Isosorbide Mononitrate ER) 60 Mg Tab, 60 MG PO DAILY, (Reported) Entered as Reported by: LESLI BARR on 08/25/20837 Lisinopril (Prinivil) 20 Mg Tablet, 20 MG PO BID, (Reported) Entered as Reported by: RAFFY LEMOS on 03/18/14 142 Magnesium Oxide (Mag Ox 400) 400 Mg Tablet, 400 MG PO BID, (Reported) Entered as Reported by: RAFFY LEMOS on 03/18/14 1420 Multivit-Min/FA/Lutein/Zeaxant (Macular Vitamin Tablet) 1 Each Tablet, 1 EACH PO DAILY, (Reported) Entered as Reported by: LESLI BARR on 08/25/20837 Mv,Ca,Min/Iron Fum/Fa/Lyco/Lut (Complete Multi Tablet) 1 Each Tablet, 1 TAB PO DAILY, (Reported) Entered as Reported by: RAFFY LEMOS on 03/18/14 142 Potassium Chloride (Klor-Con M10) 10 Meq Tab.er.prt, 10 MEQ PO DAILY, (Reported) Entered as Reported by: LESLI BARR on 08/25/20837 Tamsulosin HCl (Flomax) 0.4 Mg Cap, 0.4 MG PO DAILY, (Reported) Entered as Reported by: LESLI BARR on 08/25/20837 Ubidecarenone (Co Q-10) 200 Mg Capsule, 200 MG PO DAILY, (Reported) Entered as Reported by: LESLI BARR on 08/25/20837 [Black Beck] , 500 MG PO DAILY, (Reported) Entered as Reported by: LESLI BARR on 08/25/20837 [Elderberry] , 1 TAB PO DAILY, (Reported) Entered as Reported by: RAFFY LEMOS on 03/18/14 1441 [[place] Eye] , 2 TAB PO DAILY, (Reported) Entered as Reported by: LESLI BARR on 08/25/20837 [Vitamin B12] , 1,500 MG PO DAILY, (Reported) Entered as Reported by: LESLI BARR on 08/25/20837 Review of Systems Review of Systems Constitutional: see HPI, malaise, weakness EENTM: no symptoms reported Respiratory: no symptoms reported Cardiovascular: no symptoms reported Gastrointestinal: no symptoms reported Genitourinary: no symptoms reported Musculoskeletal: other (leg pain and swelling) Skin: other (chronic wounds) All Other Systems Reviewed Negative Unless Noted: Yes Past Xywzxhe-Mjwoii-Mnxjnt Hx Patient Social History Tobacco Use?: No Use of E-Cig and/or Vaping dev: No Substance use?: No Alcohol Use?: No Pt feels they are or have been: No Immunizations Up To Date Tetanus Booster (TDap): Unknown PED Vaccines UTD: No Influenza Vaccine Up-to-Date: Yes; Up-to-Date Past Medical History CABG Respiratory: Yes (O2 DEPENDENT 2 .5 L) Pneumonia Currently Using CPAP: No Cardiac: Yes Atrial Fibrillation, Coronary Artery Disease, High Cholesterol Neurological: No Reproductive Disorders: No Genitourinary: Yes (CRD STAGE 4 ) Renal Failure Gastrointestinal: Yes (DIVERTICULITIS) Gastroesophageal Reflux, Diverticulosis, Hiatal Hernia Diabetes, Non-Insulin dep Cataract Cancer: No Blood Disorders: No Family Medical History Alcoholism 19 FATHER G8 BROTHER (TWO BROTHERS) Cataract 19 MOTHER Congestive heart failure 19 FATHER Dementia 19 MOTHER Family history: Alzheimer's disease 19 MOTHER Family history: Arthritis 19 MOTHER Family history: Diabetes mellitus G8 BROTHER Family history: Hypertension 19 MOTHER Prostate cancer 19 FATHER Visual impairment G8 BROTHER (DETACHED RETINA) No Family History of: Abdominal aortic aneurysm Fairfield's disease Aphasia Cancer Cancer of colon Chest pain Congenital heart disease Cystic fibrosis Dysphagia Family history: Allergy Family history: Asthma Family history: Breast disease Family history: Cardiovascular disease Family history: Coronary thrombosis Family history: Gastrointestinal disease Family history: Glaucoma Family history: Osteoporosis Family history: Thyroid disorder Headache Hearing loss Heart disease Hereditary disease History of - anemia History of - disorder History of - respiratory disease History of drug abuse Human immunodeficiency virus (HIV) seropositivity Hypercholesterolemia Infertile Kidney disease Malignant neoplasm of lung Myocardial infarction Parkinson's disease Psychotic disorder Seizure disorder Stroke Tuberculosis Physical Exam Vital Signs Vital Signs - First Documented 06/02/22 06/02/22 10:15 13:27 Temp 36.3 Pulse 72 Resp 20 B/P (MAP) 164/80 Pulse Ox 96 O2 Delivery Nasal Cannula O2 Flow Rate 3.00 Capillary Refill : Less Than 3 Seconds General Appearance: WD/WN, mild distress HEENT: PERRL/EOMI Cardiovascular: regular rate, rhythm Respiratory: lungs clear, normal breath sounds, no respiratory distress, no accessory muscle use Gastrointestinal: normal bowel sounds, non tender, soft Extremities: normal range of motion, swelling (Swelling bilateral lower extremities 2+ with innumerable open ulcerations circumferential around the bilateral lower extremities from about the distal one third of the thigh to the feet. Erythema in both legs. Serous drainage from multiple wounds. The wounds are at various stages of depth to subcutaneous fat. No yellow purulence is noted. Several of the wounds have eschar formation. Tender to palpation. Erythematous extends to the toes. ) Neurologic/Psychiatric: alert, normal mood/affect, oriented x 3 Skin: normal color, warm/dry, other (See above extremity exam) Progress/Results/Core Measures Results/Orders Lab Results Laboratory Tests Test 06/02/22 11:11 06/02/22 12:28 Range/Units White Blood Count 9.2 4.3-11.0 10^3/uL Red Blood Count 4.02 L 4.30-5.52 10^6/uL Hemoglobin 11.2 L 13.3-17.7 g/dL Hematocrit 37 L 40-54 % Mean Corpuscular Volume 91 80-99 fL Mean Corpuscular Hemoglobin 28 25-34 pg Mean Corpuscular Hemoglobin Concent 31 L 32-36 g/dL Red Cell Distribution Width 16.5 H 10.0-14.5 % Platelet Count 249 130-400 10^3/uL Mean Platelet Volume 10.3 9.0-12.2 fL Immature Granulocyte % (Auto) 0 % Neutrophils (%) (Auto) 80 H 42-75 % Lymphocytes (%) (Auto) 8 L 12-44 % Monocytes (%) (Auto) 10 0-12 % Eosinophils (%) (Auto) 2 0-10 % Basophils (%) (Auto) 0 0-10 % Neutrophils # (Auto) 7.4 1.8-7.8 10^3/uL Lymphocytes # (Auto) 0.7 L 1.0-4.0 10^3/uL Monocytes # (Auto) 0.9 0.0-1.0 10^3/uL Eosinophils # (Auto) 0.2 0.0-0.3 10^3/uL Basophils # (Auto) 0.0 0.0-0.1 10^3/uL Immature Granulocyte # (Auto) 0.0 0.0-0.1 10^3/uL Erythrocyte Sedimentation Rate 50 H 0-30 MM/HR Prothrombin Time 14.9 H 12.2-14.7 SEC INR Comment 1.1 0.8-1.4 Activated Partial Thromboplast Time 33 24-35 SEC Sodium Level 141 135-145 MMOL/L Potassium Level 4.5 3.6-5.0 MMOL/L Chloride Level 106 98-107 MMOL/L Carbon Dioxide Level 24 21-32 MMOL/L Anion Gap 11 5-14 MMOL/L Blood Urea Nitrogen 33 H 7-18 MG/DL Creatinine 1.42 H 0.60-1.30 MG/DL Estimat Glomerular Filtration Rate 52 BUN/Creatinine Ratio 23 Glucose Level 121 H 70-105 MG/DL Lactic Acid Level 1.20 0.50-2.00 MMOL/L Calcium Level 9.4 8.5-10.1 MG/DL Corrected Calcium 9.8 8.5-10.1 MG/DL Total Bilirubin 0.8 0.1-1.0 MG/DL Aspartate Amino Transf (AST/SGOT) 18 5-34 U/L Alanine Aminotransferase (ALT/SGPT) 10 0-55 U/L Alkaline Phosphatase 140 H 40-136 U/L C-Reactive Protein High Sensitivity 2.81 H 0.00-0.50 MG/DL Total Protein 7.2 6.4-8.2 GM/DL Albumin 3.5 3.2-4.5 GM/DL Procalcitonin 0.06 <0.10 NG/ML Urine Color ORANGE Urine Clarity CLEAR Urine pH 5.5 5-9 Urine Specific Flomot >=1.030 1.016-1.022 Urine Protein 2+ H NEGATIVE Urine Glucose (UA) NEGATIVE NEGATIVE Urine Ketones NEGATIVE NEGATIVE Urine Nitrite NEGATIVE NEGATIVE Urine Bilirubin NEGATIVE NEGATIVE Urine Urobilinogen 1.0 < = 1.0 MG/DL Urine Leukocyte Esterase NEGATIVE NEGATIVE Urine RBC (Auto) NEGATIVE NEGATIVE Urine RBC NONE /HPF Urine WBC RARE /HPF Urine Squamous Epithelial Cells RARE /HPF Urine Crystals NONE /LPF Urine Bacteria TRACE /HPF Urine Casts NONE /LPF Urine Mucus NEGATIVE /LPF Urine Culture Indicated CULTURE PENDING Micro Results Microbiology 06/02/22 Urine Culture - Final, Complete NO GROWTH 06/02/22 Blood Culture - Preliminary, Resulted No growth 06/02/22 Blood Culture - Preliminary, Resulted No growth My Orders Orders - YEN COTTON MD Cbc With Automated Diff (06/02/22 10:43) Comprehensive Metabolic Panel (06/02/22 10:43) Blood Culture (06/02/22 10:43) Urinalysis (06/02/22 10:43) Urine Culture (06/02/22 10:43) Protime With Inr (06/02/22 10:43) Partial Thromboplastin Time (06/02/22 10:43) Chest 1 View, Ap/Pa Only (06/02/22 10:43) Ed Iv/Invasive Line Start (06/02/22 10:43) Ed Iv/Invasive Line Start (06/02/22 10:43) Vital Signs Adult Sepsis Patie Q15M (06/02/22 10:43) O2 (06/02/22 10:43) Remove Rings In Anticipation O (06/02/22 10:43) Lactic Acid Analyzer (06/02/22 10:43) Erythrocyte Sedimentation Rate (06/02/22 10:43) Hs C Reactive Protein (06/02/22 10:43) Procalcitonin (Pct) (06/02/22 10:43) Fentanyl Inj (Sublimaze Injection) (06/02/22 11:00) Ondansetron Injection (Zofran Injectio (06/02/22 11:00) Consult Wound Care Physician (06/02/22 13:38) Medications Given in ED Vital Signs/I&O 06/02/22 06/02/22 06/02/22 06/02/22 10:15 10:15 10:15 13:27 Temp 36.3 37.0 Pulse 72 73 Resp 20 18 B/P (MAP) 164/80 Pulse Ox 96 96 99 O2 Delivery Nasal Cannula Nasal Cannula O2 Flow Rate 3.00 3.00 3.00 3.00 Progress Progress Note : Time: 13:32 Progress Note Patient's labs, imaging reviewed, no findings concerning for sepsis. His vital signs have been stable. The patient is requesting antibiotics. I spoke with wound care, Dr. Leora Beaulieu. She states that there is so much resistance to Keflex it would not be her first choice. I am going to go ahead and put him on a little clindamycin. She can see him either tomorrow or early next week. I will provide the contact information for the clinic. No clinical or objective findings to warrant further evaluation from the emergency department. He is stable for discharge Diagnostic Imaging Diagonstic Imaging: Xray Plain Films/CT/US/NM/MRI: chest Comments [facility] [place] NAME: BAUTISTA IRBY [facility] REC#: [id number] PT STATUS: REG ER : 1945 PHYSICIAN: YEN COTTON MD ADMIT DATE: 06/02/22/ER Draft Date of Exam:06/02/22 CHEST 1 VIEW, AP/PA ONLY INDICATION: Bilateral leg wounds. Time of Exam: 11:53 a.m. COMPARISON: Comparison is made to prior study 06/10/2021. FINDINGS: Heart size is stable and mildly enlarged. There are changes of median sternotomy. A small right pleural effusion is noted. There is some atelectasis at the right base. Otherwise, lungs are clear. There is no pneumothorax. IMPRESSION: Cardiomegaly and status post CABG. There is a small right pleural effusion. Dictated on workstation # [id number] Dict: 06/02/22 1200 Trans: 06/02/22 1203 [id number] Interpreted by: BRIDGETTE TREVINO MD Electronically signed by: Departure Impression Primary Impression: Venous stasis dermatitis of both lower extremities Disposition: 01 HOME, SELF-CARE Condition: Stable Departure-Patient Inst. Decision time for Depature: 13:33 Referrals: LEORA BEAULIEU MD, WILLIAM J DO (PCP/Family) Primary Care Physician Patient Instructions: Cellulitis (Skin Infection), Adult (DC), Wound Care (DC) Add. Discharge Instructions: Continue your daily medications as prescribed by your primary care doctor. We are adding clindamycin 450 (one 300mg pill and 1 150mg pill) mg 3 times daily. Please take an hoys-sax-daikubu probiotic while you are on this medication. Eat a high-fiber diet. Please call Dr. Beaulieu at the wound care clinic this afternoon. She can likely follow you up tomorrow in clinic and if you cannot be there tomorrow first thing next week. If you develop fever, shortness of breath or any other emergent, concerning symptoms please come back to the emergency room for reevaluation. WOUND CARE CLINIC Dr Leora Beaulieu [phone] Scripts Clindamycin HCl (Clindamycin HCl) 300 Mg Capsule 300 MG PO TID, #21 CAP Prov: YEN COTTON MD 06/02/22 Clindamycin HCl (Clindamycin HCl) 150 Mg Capsule 150 MG PO TID, #21 CAP Prov: YEN COTTON MD 06/02/22 Copy Copies To 1: GREG SCHMIDT DO Copies To 2: LEORA BEAULIEU MD, KATHRYN M MD Jun 02, 2022 10:49
[2022-06-02] MEDS ORDERED: ONDANSETRON 4 MG/2 ML (SDV) Z0FRAN IVP ONE (11:00)
[2022-06-02] MEDS ORDERED: fentaNYL INJ 100 MCG/2 ML AMP IVP ONE (11:00)
[2022-06-02 11:24] LABS: BASOPHILS % (AUTO) 0 % (0-10); EOSINOPHILS # (AUTO) 0.2 10^3/uL (0.0-0.3); EOSINOPHILS % (AUTO) 2 % (0-10); HEMATOCRIT 37 % (40-54); HEMOGLOBIN 11.2 g/dL (13.3-17.7); LYMPHOCYTES # (AUTO) 0.7 10^3/uL (1.0-4.0); LYMPHOCYTES % (AUTO) 8 % (12-44); MEAN CORPUSCULAR HEMOGLOBIN 28 pg (25-34); MEAN CORPUSCULAR HGB CONC 31 g/dL (32-36); MEAN CORPUSCULAR VOLUME 91 fL (80-99); MEAN PLATELET VOLUME 10.3 fL (9.0-12.2); MONOCYTES # (AUTO) 0.9 10^3/uL (0.0-1.0); MONOCYTES % (AUTO) 10 % (0-12); NEUTROPHILS # (AUTO) 7.4 10^3/uL (1.8-7.8); NEUTROPHILS % (AUTO) 80 % (42-75); PLATELET COUNT 249 10^3/uL (130-400); WHITE BLOOD COUNT 9.2 10^3/uL (4.3-11.0)
[2022-06-02 11:41] LABS: ERYTHROCYTE SEDIMENTATION RATE 50 MM/HR (0-30); INR 1.1 (0.8-1.4); PROTHROMBIN TIME PATIENT 14.9 SEC (12.2-14.7)
[2022-06-02 11:44] LABS: ALBUMIN 3.5 GM/DL (3.2-4.5); BILIRUBIN,TOTAL 0.8 MG/DL (0.1-1.0); CALCIUM 9.4 MG/DL (8.5-10.1); CREATININE SERUM 1.42 MG/DL (0.60-1.30); POTASSIUM 4.5 MMOL/L (3.6-5.0); TOTAL PROTEIN 7.2 GM/DL (6.4-8.2)
--- NOTE | 2022-06-02 12:03 | Diagnostic Imaging Report ---
INDICATION: Bilateral leg wounds. Time of Exam: 11:53 a.m. COMPARISON: Comparison is made to prior study 06/10/2021. FINDINGS: Heart size is stable and mildly enlarged. There are changes of median sternotomy. A small right pleural effusion is noted. There is some atelectasis at the right base. Otherwise, lungs are clear. There is no pneumothorax. IMPRESSION: Cardiomegaly and status post CABG. There is a small right pleural effusion. Dictated by: Dictated on workstation # [id number]
[2022-06-02 12:36] LABS: BILIRUBIN,URINE NEGATIVE (NEGATIVE); CLARITY,URINE CLEAR; COLOR,URINE ORANGE; GLUCOSE, URINE (UA) NEGATIVE (NEGATIVE); KETONES,URINE NEGATIVE (NEGATIVE); LEUKOCYTE ESTERASE ,URINE NEGATIVE (NEGATIVE); NITRITE,URINE NEGATIVE (NEGATIVE); PH,URINE 5.5 (5-9); PROTEIN,URINE 2+ (NEGATIVE)
[2022-06-02 12:54] LABS: BACTERIA,URINE TRACE /HPF; SQUAMOUS EPITHELIAL CELL,UR RARE /HPF; WBC,URINE RARE /HPF
[2022-06-02] MEDS ORDERED: CLIN-144 PO (13:36)
[2022-06-02] MEDS ORDERED: CLIN150C20 PO (13:36)
== END 2022-06-02 13:57 | disposition home or self-care (01) ==
LOC: EDUNIT# 10:09 → ER 10:10
DX: I87.2 Venous insufficiency (chronic) (peripheral) (principal); Z86.16 Personal history of COVID-19
CPT/HCPCS: 36415; 71045; 80053; 81000; 83605; 84145; 85025; 85610; 85652; 85730; 86141; 87040; 87088; 96374; 96375